=== PATIENT | female | born 1985 | race Caucasian/White ===

== ENCOUNTER 2017-11-17 20:37 | Emergency (ER) | payer SELFPAY ==
--- NOTE | 2017-11-17 21:35 | EKG REPORT ---
SEVERITY:- BORDERLINE ECG - SINUS RHYTHM BORDERLINE T ABNORMALITIES, ANTERIOR LEADS : Confirmed by: Lisandro Yeager MD 17-Nov-2017 21:34:48
[2017-11-17] MEDS ORDERED: NORMAL SALINE 1000 ML 1,000 ML IV ONE (22:16)
[2017-11-17] MEDS ORDERED: LIDOCAINE 2% VISCOUS SOLN 20 ML UDCUP PO ONE (22:16)
[2017-11-17] MEDS ORDERED: MAG HYDROX/AL HYDROX/SIMETH SUSP 30 ML UDCUP PO ONE (22:16)
[2017-11-17] MEDS ORDERED: ONDANSETRON HCL INJ/PF 4 MG/2 ML SDV IV ONE (22:16)
--- NOTE | 2017-11-17 22:18 | ER Document Report ---
ED General - General Chief Complaint: chest pain, fever, nausea Stated Complaint: CHEST PAIN Time Seen by Provider: 11/17/17 22:06 Mode of Arrival: Ambulatory Information source: Patient Notes: Patient presents complaining of midsternal chest pain for the past week that worsened over the past 2 days. Patient states pain goes into the upper abdomen. Patient does report nausea but denies any vomiting or diarrhea. Patient denies any cough. Patient does complain of fever for the past 3 days in which it was 102 today. Patient complains of bilateral upper rib tenderness that wraps around her back. TRAVEL OUTSIDE OF THE [place] IN LAST 30 DAYS: No - HPI Onset: Last week Onset/Duration: Persistent Quality of pain: Achy Pain Level: 3 Associated symptoms: Chest pain, Fever, Nausea, Shortness of breath. denies: Nonproductive cough, Productive cough, Diarrhea, Vomiting, Sweating Exacerbated by: Denies Relieved by: Denies Similar symptoms previously: No Recently seen / treated by doctor: No - Related Data Allergies/Adverse Reactions: No Known Allergies Allergy (Unverified 11/17/17 20:41) Past Medical History - General Information source: Patient - Social History Smoking Status: Never Smoker Frequency of alcohol use: None Drug Abuse: None Occupation: None Lives with: Spouse/Significant other Family History: Reviewed & Not Pertinent - Medical History Medical History: Negative Past Surgical History: Reports: Hx Adenoidectomy, Hx Section, Hx Tonsillectomy Review of Systems - Review of Systems Constitutional: Fever. denies: Recent illness EENT: No symptoms reported Cardiovascular: Chest pain. denies: Dizziness Respiratory: Short of breath. denies: Cough Gastrointestinal: Abdominal pain, Nausea. denies: Diarrhea, Vomiting Genitourinary: No symptoms reported Female Genitourinary: No symptoms reported. denies: , Vaginal discharge Musculoskeletal: Back pain - Pain radiates from chest through to her back Skin: No symptoms reported Hematologic/Lymphatic: No symptoms reported Neurological/Psychological: No symptoms reported. denies: Headaches Physical Exam - Vital signs Vitals: Temp Pulse Resp BP Pulse Ox 99.4 F 91 16 119/89 H 97 11/17/17 20:50 11/17/17 20:50 11/17/17 20:50 11/17/17 20:50 11/17/17 20:50 - General General appearance: Appears well, Alert In distress: None - HEENT Head: Normocephalic, Atraumatic Eyes: Normal Ears: Normal External canal: Normal Tympanic membrane: Normal. No: Injected, Perforation, Purulent effusion, Retracted, Serous effusion Nasal: Normal Mouth/Lips: Caries Teeth diagram: 1 - dental caries, tenderness Pharynx: Normal Neck: Normal, Supple. No: Lymphadenopathy, Meningismus - Respiratory Respiratory status: No respiratory distress Chest status: Tender Breath sounds: Normal Chest palpation: Tender - Cardiovascular Rhythm: Regular. No: Tachycardia Heart sounds: S1 appreciated, S2 appreciated Murmur: No - Abdominal Inspection: Normal Distension: No distension Bowel sounds: Normal Tenderness: Tender - epigastric, suprapubic Organomegaly: No organomegaly - Back Back: Normal, Nontender. No: CVA tenderness - Extremities General upper extremity: Normal inspection, Normal strength General lower extremity: Normal inspection, Normal strength - Neurological Neuro grossly intact: Yes Cognition: Normal [place] Coma Scale Eye Opening: Spontaneous Sam[place] Coma Scale Verbal: Oriented [place] Coma Scale Motor: Obeys Commands [place] Coma Scale Total: 15 - Psychological Associated symptoms: Normal affect, Normal mood - Skin Skin Temperature: Warm Skin Moisture: Dry Skin Color: Normal Course - Re-evaluation Re-evalutation: 11/18/17 01:[address] Mendez regarding patient presentation, advises adding on an HIV test and having patient return in 2 days for repeat liver function testing. Recommends outpatient follow-up with the primary doctor for concerns about hepatitis. 11/18/17 Patient does report that pain is improved after pain medication was given here. Patient without any additional nausea at this time. Discussed with patient at length importance of follow-up in 2 days to have her liver function tests reevaluated. Patient advised to return to the emergency department for this testing so that she can be advised based on the results. Patient encouraged to get established with a primary doctor as well as to follow-up with a washerette machine operator. Patient advised of HIV testing and also told that she would need additional testing to definitively rule out HIV. Patient advised of pending hepatitis panel. Patient encouraged to avoid any alcohol use or medications containing acetaminophen. Patient very anxious regarding her diagnosis. Patient is hemodynamically stable with stable vital signs at this time. No concern for sepsis, cholecystitis or cholangitis. Patient given good return precautions. Patient verbalized understanding and is agreeable with this plan of care. - Vital Signs Vital signs: Temp Pulse Resp BP Pulse Ox 98.5 F 82 18 111/81 100 11/18/17 03:09 11/18/17 03:09 11/18/17 03:09 11/18/17 03:09 11/18/17 03:09 - Laboratory Result Diagrams: 11/17/17 23:13 11/17/17 23:13 Laboratory results interpreted by me: 11/17/17 11/17/17 11/17/17 23:13 23:13 23:13 WBC 2.9 L BUN 5 L Total Bilirubin 2.1 H Direct Bilirubin 1.5 H AST 142 H ALT 151 H Alkaline Phosphatase 243 H Urine Urobilinogen 4.0 H Labs- Entire Visit 11/17/17 11/17/17 11/17/17 23:13 23:13 23:13 WBC 2.9 L RBC 4.71 Hgb 14.1 Hct 42.0 MCV 89 MCH 30.0 MCHC 33.7 RDW 12.0 Plt Count 175 Seg Neutrophils % 59.0 Lymphocytes % 27.4 Monocytes % 10.4 Eosinophils % 2.8 Basophils % 0.4 Absolute Neutrophils 1.7 Absolute Lymphocytes 0.8 Absolute Monocytes 0.3 Absolute Eosinophils 0.1 Absolute Basophils 0.0 Sodium 141.4 Potassium 3.8 Chloride 101 Carbon Dioxide 29 Anion Gap 11 BUN 5 L Creatinine 0.70 Est GFR ( Amer) > 60 Est GFR (Non-Af Amer) > 60 Glucose 94 Calcium 9.8 Total Bilirubin 2.1 H Direct Bilirubin 1.5 H Neonat Total Bilirubin Not Reportable Neonat Direct Bilirubin Not Reportable Neonat Indirect Bili Not Reportable AST 142 H ALT 151 H Alkaline Phosphatase 243 H Troponin I Total Protein 7.2 Albumin 4.4 Lipase 60.3 Serum HCG, Qual NEGATIVE Urine Color Urine Appearance Urine pH Ur Specific [place] Urine Protein Urine Glucose (UA) Urine Ketones Urine Blood Urine Nitrite Urine Bilirubin Urine Urobilinogen Ur Leukocyte Esterase Urine WBC (Auto) Urine RBC (Auto) Urine Bacteria (Auto) Squamous Epi Cells Auto Urine Ascorbic Acid HIV 1&2 Antibody 11/17/17 11/17/1711/17/18 23:13 23:13 23:13 WBC RBC Hgb Hct MCV MCH MCHC RDW Plt Count Seg Neutrophils % Lymphocytes % Monocytes % Eosinophils % Basophils % Absolute Neutrophils Absolute Lymphocytes Absolute Monocytes Absolute Eosinophils Absolute Basophils Sodium Potassium Chloride Carbon Dioxide Anion Gap BUN Creatinine Est GFR ( Amer) Est GFR (Non-Af Amer) Glucose Calcium Total Bilirubin Direct Bilirubin Neonat Total Bilirubin Neonat Direct Bilirubin Neonat Indirect Bili AST ALT Alkaline Phosphatase Troponin I < 0.012 Total Protein Albumin Lipase Serum HCG, Qual Urine Color RAN Urine Appearance CLEAR Urine pH 9.0 Ur Specific [place] 1.011 Urine Protein NEGATIVE Urine Glucose (UA) NEGATIVE Urine Ketones NEGATIVE Urine Blood NEGATIVE Urine Nitrite NEGATIVE Urine Bilirubin NEGATIVE Urine Urobilinogen 4.0 H Ur Leukocyte Esterase NEGATIVE Urine WBC (Auto) 1 Urine RBC (Auto) 1 Urine Bacteria (Auto) TRACE Squamous Epi Cells Auto 5 Urine Ascorbic Acid NEGATIVE HIV 1&2 Antibody NEGATIVE - Diagnostic Test Radiology reviewed: Reports reviewed Discharge - Discharge Clinical Impression: Hepatitis, Nausea Neutropenia Qualifiers: Neutropenia type: unspecified Qualified Code(s): D70.9 - Neutropenia, unspecified Abdominal pain Qualifiers: Abdominal location: epigastric Qualified Code(s): R10.13 - Epigastric pain Chest pain Qualifiers: Chest pain type: unspecified Qualified Code(s): R07.9 - Chest pain, unspecified Condition: Stable Disposition: HOME, SELF-CARE Instructions: Chest Pain of Unclear Cause ([facility]), Hepatitis ([facility]), Oral Narcotic Medication ([facility]) Additional Instructions: Return immediately for any new or worsening symptoms: Persistent fever, yellowing of the skin or eyes, darkening of the urine or any other new or concerning symptoms Followup with your primary care provider, call tomorrow to make a followup appointment Hepatitis panel is pending Follow-up with a washerette machine operator for further evaluation, call Sunday for an appointment Return in 2 days to have repeat LFT blood testing performed You can call back at [phone] to get results of your hepatitis panel Prescriptions: Oxycodone HCl [Oxy-Ir 5 mg Tablet] 5 mg PO Q6HP PRN #12 tab PRN Reason: Referrals: [facility] [Provider Group] - Follow up as needed [facility] [Provider Group] - Follow up as needed NAGI CORREA MD [ACTIVE STAFF] - Follow up as needed PONCE MCKENZIE MD [ACTIVE STAFF] - Follow up as needed
[2017-11-17 23:42] LABS: ABSOLUTE EOSINOPHILS # (AUTO) 0.1 10^3/uL (0.0-0.6); ABSOLUTE LYMPHOCYTES (AUTO) 0.8 10^3/uL (0.5-4.7); ABSOLUTE MONOCYTES (AUTO) 0.3 10^3/uL (0.1-1.4); ABSOLUTE NEUT (AUTO) 1.7 10^3/uL (1.7-8.2); BASOPHILS % (AUTO) 0.4 % (0-2); EOSINOPHILS % (AUTO) 2.8 % (0-6); HEMOGLOBIN 14.1 g/dL (12.0-15.5); LYMPHOCYTES % (AUTO) 27.4 % (13-45); MEAN CORPUSCULAR HGB CONC 33.7 g/dL (32.0-36.0); MEAN CORPUSCULAR VOLUME 89 fl (80-97); MONOCYTES % (AUTO) 10.4 % (3-13); PLATELET COUNT 175 10^3/uL (150-450); RED BLOOD COUNT 4.71 10^6/uL (3.72-5.28); TOTAL CELLS COUNTED % (AUTO) 100 %; WHITE BLOOD COUNT 2.9 10^3/uL (4.0-10.5)
[2017-11-17 23:44] LABS: APPEARANCE,URINE CLEAR; BILIRUBIN,URINE NEGATIVE (NEGATIVE); COLOR,URINE AMBER; GLUCOSE, URINE NEGATIVE (NEGATIVE); KETONES,URINE NEGATIVE (NEGATIVE); LEUKOCYTE ESTERASE,URINE NEGATIVE (NEGATIVE); NITRITE,URINE NEGATIVE (NEGATIVE); PROTEIN,URINE NEGATIVE (NEGATIVE); URINE SPECIFIC GRAVITY 1.011
--- NOTE | 2017-11-17 23:45 | RADIOLOGY REPORT (SQ) ---
EXAM DESCRIPTION: CHEST 2 VIEWS CLINICAL HISTORY: 32 years Female, epig pain, pain around lower ribs COMPARISON: None. TECHNIQUE: PA and lateral. FINDINGS: Adequate lung volume, clear parenchyma, normal cardiac silhouette, and intact bony thorax. IMPRESSION: No acute cardiopulmonary findings.
[2017-11-18 00:02] LABS: ALANINE AMINOTRANSFERASE 151 U/L (9-52); ALBUMIN 4.4 g/dL (3.5-5.0); ALKALINE PHOSPHATASE 243 U/L (38-126); ANION GAP 11 (5-19); ASPARTATE AMINO TRANSFERASE 142 U/L (14-36); BILIRUBIN,DIRECT 1.5 mg/dL (0.0-0.4); BILIRUBIN,TOTAL 2.1 mg/dL (0.2-1.3); BLOOD UREA NITROGEN 5 mg/dL (7-20); CALCIUM 9.8 mg/dL (8.4-10.2); CARBON DIOXIDE 29 mmol/L (22-30); CHLORIDE 101 mmol/L (98-107); GLUCOSE 94 mg/dL (75-110); LIPASE 60.3 U/L (23-300); POTASSIUM 3.8 mmol/L (3.6-5.0); SODIUM 141.4 mmol/L (137-145); TOTAL PROTEIN 7.2 g/dL (6.3-8.2)
--- NOTE | 2017-11-18 00:22 | RADIOLOGY REPORT (SQ) ---
EXAM DESCRIPTION: U/S ABDOMEN LIMITED W/O DOP CLINICAL HISTORY: 32 years, Female, epig pain, pain around lower ribs COMPARISON: None. LIMITATIONS: None. FINDINGS: Gallbladder appears normal. Negative sonographic Jiang's test. Common bile duct diameter 0.4 cm. No biliary ductal dilation. Pancreas, aorta, liver, and 10 cm right kidney appear otherwise unremarkable. No ascites. IMPRESSION: Normal RUQ sonogram.
[2017-11-18] MEDS ORDERED: OXYCODONE HCL IR 5 MG TABLET PO ONE (01:00)
[2017-11-18 03:11] VITALS: BP 111/81
[2017-11-19 12:37] LABS: HEPATITIS A AB IGM Negative (Negative); HEPATITIS B CORE AB IGM Negative (Negative); HEPATITS B SURFACE ANTIGEN Negative (Negative)
[2017-11-19 15:48] LABS: HEPATITIS C VIRUS ANTIBODY <0.1 s/co ratio (0.0-0.9)
== END 2017-11-18 03:49 | disposition home or self-care (01) ==
LOC: ER 20:37
DX: K75.9 Inflammatory liver disease, unspecified (principal); R11.0 Nausea; D70.9 Neutropenia, unspecified; R10.13 Epigastric pain; R07.9 Chest pain, unspecified; R50.9 Fever, unspecified; R06.02 Shortness of breath; K02.9 Dental caries, unspecified
CPT/HCPCS: 93005; 99284; 96361; 96374; 36415; 87040; 83690; 84703; 85025; 80053; 81001; 84484; 86701; 80074; 71046; 76705; 93010; J2405; J7030

== ENCOUNTER 2017-11-20 12:49 | Emergency (ER) | payer MEDICAID ==
--- NOTE | 2017-11-20 13:46 | ER Document Report ---
ED GI/ - General Chief Complaint: Abdominal Pain Stated Complaint: ABDOMINAL PAIN Time Seen by Provider: 11/20/17 13:30 Notes: The patient is a 32-year-old female, past medical history autoimmune joint disease, presents with 1 week of right upper quadrant pain and dark urine. She was seen in the ER 4 days ago and had elevated LFTs in the low WBC. Her ultrasound of her right upper quadrant was negative and her hepatitis and HIV tests were also negative. Patient has not taken a large amount of Tylenol, does not drink alcohol heavily has no recent travel. She is here for follow-up visit. TRAVEL OUTSIDE OF THE [place] IN LAST 30 DAYS: No - Related Data Allergies/Adverse Reactions: No Known Allergies Allergy (Unverified 11/17/17 20:41) Past Medical History - General Information source: Patient - Social History Smoking Status: Current Every Day Smoker Chew tobacco use (# tins/day): No Frequency of alcohol use: None Drug Abuse: None Family History: Reviewed & Not Pertinent Patient has suicidal ideation: No Patient has homicidal ideation: No Renal/ Medical History: Denies: Hx Peritoneal Dialysis Past Surgical History: Reports: Hx Adenoidectomy, Hx Section, Hx Tonsillectomy Review of Systems - Review of Systems Notes: REVIEW OF SYSTEMS: CONSTITUTIONAL: -fevers, -chills EENT: -eye pain, -difficulty swallowing, -nasal congestion CARDIOVASCULAR: -chest pain, -syncope. RESPIRATORY: -cough, -SOB GASTROINTESTINAL: +RUQ abdominal pain, -nausea, -vomiting, -diarrhea GENITOURINARY: -dysuria, -hematuria MUSCULOSKELETAL: -back pain, -neck pain SKIN: -rash or skin lesions. HEMATOLOGIC: -easy bruising or bleeding. LYMPHATIC: -swollen, enlarged glands. NEUROLOGICAL: -altered mental status or loss of consciousness, -headache, - neurologic symptoms PSYCHIATRIC: -anxiety, -depression. ALL OTHER SYSTEMS REVIEWED AND NEGATIVE. Physical Exam - Vital signs Vitals: Temp Pulse Resp BP Pulse Ox 98.1 F 104 H 16 127/95 H 99 11/20/17 13:00 11/20/17 13:00 11/20/17 13:00 11/20/17 13:11/20/17 13:00 - Notes Notes: PHYSICAL EXAMINATION: GENERAL: Well-appearing, well-nourished and in no acute distress. HEAD: Atraumatic, normocephalic. EYES: Pupils equal round and reactive to light, extraocular movements intact, sclera anicteric, conjunctiva are normal. ENT: nares patent, oropharynx clear without exudates. Moist mucous membranes. NECK: Normal range of motion, supple without lymphadenopathy LUNGS: Breath sounds clear to auscultation bilaterally and equal. No wheezes rales or rhonchi. HEART: Regular rate and rhythm without murmurs ABDOMEN: Soft, mild RUQ tenderness, normoactive bowel sounds. No guarding, no rebound. No masses appreciated. EXTREMITIES: Normal range of motion, no pitting or edema. No cyanosis. NEUROLOGICAL: Cranial nerves grossly intact. Normal speech, normal gait. Normal sensory and motor exams. PSYCH: Normal mood, normal affect. SKIN: Warm, Dry, normal turgor, no rashes or lesions noted. Not jaundiced. Course - Re-evaluation Re-evalutation: Patient appears well. Her white blood cell count increased from 2.9 to 4.2 and LFTs remain stable. RUQ US does not show any acute findings. Suspect a viral or autoimmune etiology to her symptoms and instructed her to follow-up with the chlorine plant operator for further evaluation and treatment. - Vital Signs Vital signs: Temp Pulse Resp BP Pulse Ox 97.3 F 79 16 133/86 H 100 11/20/17 16:49 11/20/17 16:49 11/20/17 16:49 11/20/17 16:49 11/20/17 16:49 - Laboratory Result Diagrams: 11/20/17 14:05 11/20/17 14:05 Laboratory results interpreted by me: 11/20/17 14:05 Potassium 3.5 L BUN 5 L Total Bilirubin 4.0 H Direct Bilirubin 3.6 H AST 107 H ALT 184 H Alkaline Phosphatase 281 H Total Protein 8.3 H - Diagnostic Test Radiology reviewed: Image reviewed, Reports reviewed Radiology results interpreted by me: JAGDEEP US: Normal Discharge - Discharge Clinical Impression: Elevated LFTs Condition: Stable Disposition: HOME, SELF-CARE Additional Instructions: Follow-up with the chlorine plant operator for further evaluation and treatment. Forms: Elevated Blood Pressure, Return to Work Referrals: PONCE MCKENZIE MD [ACTIVE STAFF] - Follow up as needed
[2017-11-20 14:23] LABS: ABSOLUTE EOSINOPHILS # (AUTO) 0.2 10^3/uL (0.0-0.6); ABSOLUTE LYMPHOCYTES (AUTO) 1.4 10^3/uL (0.5-4.7); ABSOLUTE MONOCYTES (AUTO) 0.4 10^3/uL (0.1-1.4); ABSOLUTE NEUT (AUTO) 2.3 10^3/uL (1.7-8.2); BASOPHILS % (AUTO) 0.5 % (0-2); EOSINOPHILS % (AUTO) 4.2 % (0-6); HEMATOCRIT 45.4 % (36.0-47.0); HEMOGLOBIN 15.3 g/dL (12.0-15.5); LYMPHOCYTES % (AUTO) 32.8 % (13-45); MEAN CORPUSCULAR HEMOGLOBIN 29.7 pg (27.0-33.4); MEAN CORPUSCULAR HGB CONC 33.7 g/dL (32.0-36.0); MEAN CORPUSCULAR VOLUME 88 fl (80-97); MONOCYTES % (AUTO) 9.1 % (3-13); PLATELET COUNT 211 10^3/uL (150-450); RED BLOOD COUNT 5.14 10^6/uL (3.72-5.28); RED CELL DISTRIBUTION WIDTH 12.1 % (11.5-14.0); SEGMENTED NEUTROPHILS % (AUTO) 53.4 % (42-78); TOTAL CELLS COUNTED % (AUTO) 100 %; WHITE BLOOD COUNT 4.2 10^3/uL (4.0-10.5)
[2017-11-20 14:40] LABS: ALANINE AMINOTRANSFERASE 184 U/L (9-52); ALBUMIN 4.6 g/dL (3.5-5.0); ALKALINE PHOSPHATASE 281 U/L (38-126); ANION GAP 14 (5-19); ASPARTATE AMINO TRANSFERASE 107 U/L (14-36); BILIRUBIN,DIRECT 3.6 mg/dL (0.0-0.4); BLOOD UREA NITROGEN 5 mg/dL (7-20); CARBON DIOXIDE 27 mmol/L (22-30); CHLORIDE 100 mmol/L (98-107); GLUCOSE 107 mg/dL (75-110); SODIUM 141.2 mmol/L (137-145); TOTAL PROTEIN 8.3 g/dL (6.3-8.2)
[2017-11-20 14:41] LABS: POTASSIUM 3.5 mmol/L (3.6-5.0)
--- NOTE | 2017-11-20 16:28 | RADIOLOGY REPORT (SQ) ---
EXAM DESCRIPTION: U/S ABDOMEN LIMITED W/O DOP COMPLETED DATE/TIME: 11/20/2017 4:14 pm REASON FOR STUDY: RUQ pain, worsening LFTs COMPARISON: 11/17/2017. TECHNIQUE: Dynamic and static grayscale images acquired of the abdomen and recorded on PACS. Kyle mehta selected color Doppler and spectral images recorded. LIMITATIONS: None. FINDINGS: PANCREAS: No masses. Visualized pancreatic duct normal caliber. LIVER: No masses. Echotexture normal. LIVER VASCULATURE: Normal directional flow of the main portal vein and hepatic veins. GALLBLADDER: Contracted. No stones. Normal wall thickness. No pericholecystic fluid. ULTRASOUND-DETECTED PEREIRA'S SIGN: Negative. INTRAHEPATIC DUCTS AND COMMON DUCT: CBD and intrahepatic ducts normal caliber. No filling defects. INFERIOR VENA CAVA: Normal flow. AORTA: No aneurysm. RIGHT KIDNEY: Normal size. Normal echogenicity. No solid or suspicious masses. No hydronephrosis. No calcifications. PERITONEAL AND RIGHT PLEURAL SPACE: No ascites or effusions. OTHER: No other significant findings. IMPRESSION: NORMAL RIGHT UPPER QUADRANT ULTRASOUND. TECHNICAL DOCUMENTATION: JOB ID: [id number] [employer]- All Rights Reserved Reading location - IP/workstation name: [email or web address]
[2017-11-20 16:54] VITALS: BP 133/86
== END 2017-11-20 16:54 | disposition home or self-care (01) ==
LOC: ER 12:49
DX: R79.89 Other specified abnormal findings of blood chemistry (principal); R10.11 Right upper quadrant pain; F17.200 Nicotine dependence, unspecified, uncomplicated
CPT/HCPCS: 36415; 76705; 80053; 85025; 99284

== ENCOUNTER 2017-11-23 11:54 | Emergency (ER) | payer MEDICAID ==
[2017-11-23] MEDS ORDERED: NORMAL SALINE 1000 ML 1,000 ML IV ONE (12:30)
--- NOTE | 2017-11-23 12:30 | ER Document Report ---
ED GI/ - General TRAVEL OUTSIDE OF THE [place] IN LAST 30 DAYS: No - General Chief Complaint: Abdominal Pain Stated Complaint: ABDOMINAL PAIN Time Seen by Provider: 11/23/17 12:09 Notes: Patient presents with concern of right upper quadrant pain and diffuse itching. Patient when she been seen in the emergency department for 4\14 and 17 of this month for similar symptoms that are now worsening. She complains of right upper quadrant pain that is worsening and also begin to have garduno colored stools this morning. She has had a formal ultrasound that shows no acute abnormalities. Her labs showed transaminitis with no etiology. She states that she has been worked up for hepatitis A, B, and C and have all come back negative. She has had a negative ultrasound for previous visits. She is but her delivery was in June of last year. She does not take any medications on a daily basis. She has not been out of the country. She denies any vaginal discharge or pain. She denies any drug use. She denies any recent fevers cough or congestion. She has a appointment with a certified registered locksmith but has not been able to see them yet. She called their office and she was told to come to the emergency department for reevaluation. Web Services Professional name is Dr. Briggs at [facility]. I have greeted and performed a rapid initial assessment of this patient. A comprehensive ED assessment and evaluation of the patient, analysis of test results and completion of the medical decision making process will be conducted by additional ED providers. PHYSICAL EXAMINATION: GENERAL: Well-appearing, well-nourished and in no acute distress. HEAD: Atraumatic, normocephalic. EYES: Pupils equal round extraocular movements intact, conjunctiva are normal. No icterus ENT: Nares patent NECK: Normal range of motion LUNGS: No respiratory distress ABD: Tenderness to palpation of right upper quadrant Musculoskeletal: Normal range of motion NEUROLOGICAL: Normal speech, normal gait. PSYCH: Normal mood, normal affect. SKIN: Warm, Dry, normal turgor, no rashes or lesions noted. (CAROLINA RODRIGUEZ) - Related Data Allergies/Adverse Reactions: No Known Allergies Allergy (Verified 11/23/17 11:55) Past Medical History - Social History Smoking Status: Current Every Day Smoker Chew tobacco use (# tins/day): No Frequency of alcohol use: None Drug Abuse: None Family History: Reviewed & Not Pertinent Patient has suicidal ideation: No Patient has homicidal ideation: No Renal/ Medical History: Denies: Hx Peritoneal Dialysis Past Surgical History: Reports: Hx Adenoidectomy, Hx Section, Hx Tonsillectomy - Vital signs Vitals: Temp Pulse Resp BP Pulse Ox 98.1 F 117 H 20 151/105 H 100 11/23/17 11:59 11/23/17 11:59 11/23/17 11:59 11/23/17 11:59 11/23/17 11:59 - Vital Signs Vital signs: Temp Pulse Resp BP Pulse Ox 98.1 F 117 H 20 151/105 H 100 11/23/17 11:59 11/23/17 11:59 11/23/17 11:59 11/23/17 11:59 11/23/17 11:59
[2017-11-23] MEDS ORDERED: ONDANSETRON HCL INJ/PF 4 MG/2 ML SDV IV ONE (12:31)
[2017-11-23] MEDS ORDERED: AMLODIPINE BESYLATE 5 MG TABLET PO ONE (12:50)
[2017-11-23 13:18] LABS: ABSOLUTE EOSINOPHILS # (AUTO) 0.2 10^3/uL (0.0-0.6); ABSOLUTE LYMPHOCYTES (AUTO) 1.6 10^3/uL (0.5-4.7); ABSOLUTE MONOCYTES (AUTO) 0.4 10^3/uL (0.1-1.4); ABSOLUTE NEUT (AUTO) 2.5 10^3/uL (1.7-8.2); BASOPHILS % (AUTO) 1.1 % (0-2); EOSINOPHILS % (AUTO) 3.2 % (0-6); HEMATOCRIT 44.4 % (36.0-47.0); HEMOGLOBIN 15.1 g/dL (12.0-15.5); LYMPHOCYTES % (AUTO) 33.9 % (13-45); MEAN CORPUSCULAR HEMOGLOBIN 29.8 pg (27.0-33.4); MEAN CORPUSCULAR HGB CONC 33.9 g/dL (32.0-36.0); MEAN CORPUSCULAR VOLUME 88 fl (80-97); MONOCYTES % (AUTO) 8.5 % (3-13); PLATELET COUNT 261 10^3/uL (150-450); RED BLOOD COUNT 5.06 10^6/uL (3.72-5.28); SEGMENTED NEUTROPHILS % (AUTO) 53.3 % (42-78); TOTAL CELLS COUNTED % (AUTO) 100 %; WHITE BLOOD COUNT 4.7 10^3/uL (4.0-10.5)
[2017-11-23 13:20] LABS: APPEARANCE,URINE CLEAR; BILIRUBIN,URINE NEGATIVE (NEGATIVE); COLOR,URINE YELLOW; GLUCOSE, URINE NEGATIVE (NEGATIVE); KETONES,URINE NEGATIVE (NEGATIVE); LEUKOCYTE ESTERASE,URINE NEGATIVE (NEGATIVE); NITRITE,URINE NEGATIVE (NEGATIVE); PROTEIN,URINE NEGATIVE (NEGATIVE); URINE SPECIFIC GRAVITY 1.002; UROBILINOGEN,URINE NEGATIVE mg/dL (<2.0)
[2017-11-23] MEDS ORDERED: HYDROXYZINE PAMOATE 50 MG CAPSULE PO ONE (13:20)
[2017-11-23 13:37] LABS: URINE AMPHETAMINES SCREEN NEGATIVE; URINE BARBITURATES SCREEN NEGATIVE; URINE BENZODIAZEPINES SCREEN NEGATIVE; URINE MARIJUANA (THC) SCREEN NEGATIVE; URINE METHADONE SCREEN NEGATIVE; URINE PHENCYCLIDINE SCREEN NEGATIVE
[2017-11-23 13:40] LABS: ALANINE AMINOTRANSFERASE 188 U/L (9-52); ALBUMIN 4.5 g/dL (3.5-5.0); ALKALINE PHOSPHATASE 259 U/L (38-126); ANION GAP 14 (5-19); ASPARTATE AMINO TRANSFERASE 101 U/L (14-36); BILIRUBIN,TOTAL 3.4 mg/dL (0.2-1.3); BLOOD UREA NITROGEN 3 mg/dL (7-20); CALCIUM 10.1 mg/dL (8.4-10.2); CARBON DIOXIDE 27 mmol/L (22-30); CHLORIDE 104 mmol/L (98-107); GLUCOSE 111 mg/dL (75-110); POTASSIUM 3.7 mmol/L (3.6-5.0); SODIUM 144.6 mmol/L (137-145)
[2017-11-23 13:47] LABS: URINE COCAINE SCREEN NEGATIVE
[2017-11-23 13:50] LABS: LIPASE 59.8 U/L (23-300)
--- NOTE | 2017-11-23 14:00 | RADIOLOGY REPORT (SQ) ---
EXAM DESCRIPTION: CT ABD/PELVIS WITH IV ONLY COMPLETED DATE/TIME: 11/23/2017 1:45 pm REASON FOR STUDY: RUQ pain COMPARISON: None. TECHNIQUE: CT scan of the abdomen and pelvis performed using helical scanning technique with dynamic intravenous contrast injection. No oral contrast. Images reviewed with lung, soft tissue, and bone windows. Reconstructed coronal and sagittal MPR images reviewed. Delayed images for evaluation of the urinary system also acquired. All images stored on PACS. All CT scanners at this facility use dose modulation, iterative reconstruction, and/or weight based d osing when appropriate to reduce radiation dose to as low as reasonably achievable (ALARA). [facility]: Dose Right [facility]: CareDose [facility]: Dose Right [facility]: Teradose 4D [facility]: [employer] CONTRAST TYPE AND DOSE: contrast/concentration: Isovue 370.00 mg/ml; Total Contrast Delivered: 84.0 ml; Total Saline Delivered: 69.0 ml RENAL FUNCTION: BUN 5 creatinine 0.73 RADIATION DOSE: CT Rad equipment meets quality standard of care and radiation dose reduction techniq ues were employed. CTDIvol: NaN - NaN mGy. DLP: 0 mGy-cm.. LIMITATIONS: None. FINDINGS: LOWER CHEST: No significant findings. No nodules or infiltrates. LIVER: Normal size. No masses. No dilated ducts. SPLEEN: Normal size. No focal lesions. PANCREAS: No masses. No significant calcifications. No adjacent inflammation or peripancreatic fluid collections. Pancreatic duct not dilated. GALLBLADDER: No identified stones by CT criteria. No inflammatory changes to suggest cholecystitis. ADRENAL GLANDS: No significant masses or asymmetry. RIGHT KIDNEY AND URETER: No solid masses. No significant calcifications. No hydronephrosis or hyd roureter. LEFT KIDNEY AND URETER: No solid masses. No significant calcifications. No hydronephrosis or hydr oureter. AORTA AND VESSELS: No aneurysm. No dissection. Renal arteries, SMA, celiac without stenosis. RETROPERITONEUM: No retroperitoneal adenopathy, hemorrhage or masses. BOWEL AND PERITONEAL CAVITY: No masses or inflammatory changes. No free fluid or peritoneal masses. APPENDIX: Normal. PELVIS: There is a 33 mm left ovarian cyst. There is no free fluid in the pelvis. ABDOMINAL WALL: No masses. No hernias. BONES: No significant or acute findings. OTHER: No other significant finding. IMPRESSION: 33 mm left ovarian cyst. TECHNICAL DOCUMENTATION: JOB ID: [id number] Quality ID # [id number]: Final reports with documentation of one or more dose reduction techniques (e.g., Au tomated exposure control, adjustment of the mA and/or kV according to patient size, use of iterative reconstruction technique) 2010 [employer]- All Rights Reserved Reading location - IP/workstation name: [email or web address]
--- NOTE | 2017-11-23 14:33 | ER Document Report ---
ED GI/ - General Chief Complaint: Abdominal Pain Stated Complaint: ABDOMINAL PAIN Time Seen by Provider: 11/23/17 12:09 Mode of Arrival: Ambulatory Information source: Patient Notes: Patient presents complaining of right upper quadrant abdominal pain the past week. Patient has been seen here on 11/17/2017 and 11/20/2017. Patient had elevated liver function studies at this time with a negative ultrasound. Patient presents today because she complains of continued right upper quadrant abdominal pain, pruritus and reports having a huan colored stool today. Patient denies any fever or cough. Patient does have an appointment with a front end mechanic next week. TRAVEL OUTSIDE OF THE [place] IN LAST 30 DAYS: No - HPI Patient complains to provider of: Abdominal pain. No: Vomiting Onset: Last week Timing/Duration: Persistent Quality of pain: Achy, Sharp - Occasionally sharp Pain Level: 2 Location: RUQ Associated symptoms: Nausea. denies: Chest pain, Fever, Urinary hesitancy, Urinary frequency, Urinary retention, Vaginal discharge, Vomiting Exacerbated by: Movement Relieved by: Denies Similar symptoms previously: No Recently seen / treated by doctor: Yes - Related Data Allergies/Adverse Reactions: No Known Allergies Allergy (Verified 11/23/17 11:55) Past Medical History - General Information source: Patient - Social History Smoking Status: Current Every Day Smoker Chew tobacco use (# tins/day): No Smoking Education Provided: Yes Frequency of alcohol use: None Drug Abuse: None Occupation: None Lives with: Family Family History: Reviewed & Not Pertinent Patient has suicidal ideation: No Patient has homicidal ideation: No - Medical History Medical History: Other - Unspecified connective tissue disease, autoimmune Renal/ Medical History: Denies: Hx Peritoneal Dialysis Past Surgical History: Reports: Hx Adenoidectomy, Hx Section, Hx Tonsillectomy Review of Systems - Review of Systems Constitutional: No symptoms reported. denies: Fever, Recent illness EENT: No symptoms reported Cardiovascular: No symptoms reported. denies: Chest pain Respiratory: No symptoms reported. denies: Cough, Short of breath Gastrointestinal: Abdominal pain, Nausea, Other - Huan colored stool. denies: Vomiting Genitourinary: No symptoms reported Female Genitourinary: No symptoms reported Musculoskeletal: No symptoms reported Skin: Other - Generalized pruritus. denies: Rash Hematologic/Lymphatic: No symptoms reported Neurological/Psychological: No symptoms reported Physical Exam - Vital signs Vitals: Temp Pulse Resp BP Pulse Ox 98.1 F 117 H 20 151/105 H 100 11/23/17 11:59 11/23/17 11:59 11/23/17 11:59 11/23/17 11:59 11/23/17 11:59 - General General appearance: Appears well, Alert In distress: None - HEENT Head: Normocephalic, Atraumatic Eyes: Normal Conjunctiva: Normal Nasal: Normal Mouth/Lips: Normal Mucous membranes: Normal Pharynx: Normal Neck: Normal, Supple. No: Lymphadenopathy - Respiratory Respiratory status: No respiratory distress Chest status: Nontender Breath sounds: Normal. No: Rales, Rhonchi, Stridor, Wheezing Chest palpation: Normal - Cardiovascular Rhythm: Regular Heart sounds: S1 appreciated, S2 appreciated Murmur: No - Abdominal Inspection: Normal Distension: No distension Bowel sounds: Normal Tenderness: Tender - RUQ Organomegaly: No organomegaly - Back Back: Normal, Nontender. No: CVA tenderness - Extremities General upper extremity: Normal inspection, Nontender, Normal strength General lower extremity: Normal inspection, Nontender, Normal strength - Neurological Neuro grossly intact: Yes Cognition: Normal Shell Coma Scale Eye Opening: Spontaneous Samanta Coma Scale Verbal: Oriented Samanta Coma Scale Motor: Obeys Commands Shell Coma Scale Total: 15 - Psychological Associated symptoms: Normal affect, Normal mood - Skin Skin Temperature: Warm Skin Moisture: Dry Skin Color: Normal Course - Re-evaluation Re-evalutation: 11/23/17 14:[address] Chaudhry regarding patient presentation, advises obtaining MRCP to further evaluate patient's symptoms. 11/23/17 17:[address] Anselmo Tellez at [facility], transition specialist front end mechanic. Reviewed patient' s presentation and diagnostic workup. Advises giving patient Atarax to help with pruritus and having her follow-up as an outpatient with GI as planned. No additional testing advised at this time. 11/23/17 Patient states that the Atarax markedly helped her pruritus. - Vital Signs Vital signs: Temp Pulse Resp BP Pulse Ox 98.9 F 89 18 121/78 98 11/23/17 17:38 11/23/17 17:38 11/23/17 17:38 11/23/17 17:38 11/23/17 17:38 - Laboratory Result Diagrams: 11/23/17 12:45 11/23/17 12:45 Laboratory results interpreted by me: 11/23/17 12:45 BUN 3 L Glucose 111 H Total Bilirubin 3.4 H Direct Bilirubin 3.0 H AST 101 H ALT 188 H Alkaline Phosphatase 259 H 11/23/17 17:17 Labs- Entire Visit 11/23/17 11/23/17 11/23/17 12:45 12:45 12:45 WBC 4.7 RBC 5.06 Hgb 15.1 Hct 44.4 MCV 88 MCH 29.8 MCHC 33.9 RDW 12.0 Plt Count 261 Seg Neutrophils % 53.3 Lymphocytes % 33.9 Monocytes % 8.5 Eosinophils % 3.2 Basophils % 1.1 Absolute Neutrophils 2.5 Absolute Lymphocytes 1.6 Absolute Monocytes 0.4 Absolute Eosinophils 0.2 Absolute Basophils 0.0 PT INR APTT Sodium 144.6 Potassium 3.7 Chloride 104 Carbon Dioxide 27 Anion Gap 14 BUN 3 L Creatinine 0.56 Est GFR ( Amer) > 60 Est GFR (Non-Af Amer) > 60 Glucose 111 H Calcium 10.1 Total Bilirubin 3.4 H Direct Bilirubin 3.0 H Neonat Total Bilirubin Not Reportable Neonat Direct Bilirubin Not Reportable Neonat Indirect Bili Not Reportable AST 101 H ALT 188 H Alkaline Phosphatase 259 H Ammonia 17.6 Total Protein 8.0 Albumin 4.5 Lipase Urine Color Urine Appearance Urine pH Ur Specific Sargent Urine Protein Urine Glucose (UA) Urine Ketones Urine Blood Urine Nitrite Urine Bilirubin Urine Urobilinogen Ur Leukocyte Esterase Urine RBC (Auto) Squamous Epi Cells Auto Urine Mucus (Auto) Urine Ascorbic Acid Urine Opiates Screen Urine Methadone Screen Ur Barbiturates Screen Ur Phencyclidine Scrn Ur Amphetamines Screen U Benzodiazepines Scrn Urine Cocaine Screen U Marijuana (THC) Screen 11/23/17 11/23/17 11/23/17 12:45 12:45 12:45 WBC RBC Hgb Hct MCV MCH MCHC RDW Plt Count Seg Neutrophils % Lymphocytes % Monocytes % Eosinophils % Basophils % Absolute Neutrophils Absolute Lymphocytes Absolute Monocytes Absolute Eosinophils Absolute Basophils PT INR APTT Sodium Potassium Chloride Carbon Dioxide Anion Gap BUN Creatinine Est GFR ( Amer) Est GFR (Non-Af Amer) Glucose Calcium Total Bilirubin Direct Bilirubin Neonat Total Bilirubin Neonat Direct Bilirubin Neonat Indirect Bili AST ALT Alkaline Phosphatase Ammonia Total Protein Albumin Lipase 59.8 Urine Color YELLOW Urine Appearance CLEAR Urine pH 6.0 Ur Specific Sargent 1.002 Urine Protein NEGATIVE Urine Glucose (UA) NEGATIVE Urine Ketones NEGATIVE Urine Blood NEGATIVE Urine Nitrite NEGATIVE Urine Bilirubin NEGATIVE Urine Urobilinogen NEGATIVE Ur Leukocyte Esterase NEGATIVE Urine RBC (Auto) 0 Squamous Epi Cells Auto 1 Urine Mucus (Auto) RARE Urine Ascorbic Acid NEGATIVE Urine Opiates Screen NEGATIVE Urine Methadone Screen NEGATIVE Ur Barbiturates Screen NEGATIVE Ur Phencyclidine Scrn NEGATIVE Ur Amphetamines Screen NEGATIVE U Benzodiazepines Scrn NEGATIVE Urine Cocaine Screen NEGATIVE U Marijuana (THC) Screen NEGATIVE 11/23/17 12:45 WBC RBC Hgb Hct MCV MCH MCHC RDW Plt Count Seg Neutrophils % Lymphocytes % Monocytes % Eosinophils % Basophils % Absolute Neutrophils Absolute Lymphocytes Absolute Monocytes Absolute Eosinophils Absolute Basophils PT 13.2 INR 0.95 APTT 29.3 Sodium Potassium Chloride Carbon Dioxide Anion Gap BUN Creatinine Est GFR ( Amer) Est GFR (Non-Af Amer) Glucose Calcium Total Bilirubin Direct Bilirubin Neonat Total Bilirubin Neonat Direct Bilirubin Neonat Indirect Bili AST ALT Alkaline Phosphatase Ammonia Total Protein Albumin Lipase Urine Color Urine Appearance Urine pH Ur Specific Sargent Urine Protein Urine Glucose (UA) Urine Ketones Urine Blood Urine Nitrite Urine Bilirubin Urine Urobilinogen Ur Leukocyte Esterase Urine RBC (Auto) Squamous Epi Cells Auto Urine Mucus (Auto) Urine Ascorbic Acid Urine Opiates Screen Urine Methadone Screen Ur Barbiturates Screen Ur Phencyclidine Scrn Ur Amphetamines Screen U Benzodiazepines Scrn Urine Cocaine Screen U Marijuana (THC) Screen Reviewed labs from patient's previous 2 ED visits - Diagnostic Test Radiology reviewed: Reports reviewed Discharge - Discharge Clinical Impression: Elevated LFTs, Pruritus Abdominal pain Qualifiers: Abdominal location: right upper quadrant Qualified Code(s): R10.11 - Right upper quadrant pain Condition: Stable Disposition: HOME, SELF-CARE Instructions: Abdominal Pain ([facility]), Liver Function Abnormality ([facility]) Additional Instructions: Return immediately for any new or worsening symptoms Followup with your primary care provider, call tomorrow to make a followup appointment Follow-up with GI doctor next week as planned Prescriptions: Hydroxyzine HCl [Atarax 25 mg Tablet] 1 - 2 tab PO QID #25 tablet Forms: Smoking Cessation Education Referrals: PONCE MCKENZIE MD [ACTIVE STAFF] - Follow up as needed
[2017-11-23 14:58] LABS: INTERNATIONAL RATION (INR) 0.95; PROTHROMBIN TIME 13.2 SEC (11.4-15.4)
[2017-11-23 14:59] LABS: PARTIAL THROMBOPLASTIN TIME 29.3 SEC (23.5-35.8)
--- NOTE | 2017-11-23 16:31 | RADIOLOGY REPORT (SQ) ---
EXAM DESCRIPTION: MRI ABDOMEN WITHOUT COMPLETED DATE/TIME: 11/23/2017 4:20 pm REASON FOR STUDY: MRCP, elev LFT/bili, RUQ pain COMPARISON: Recent CT and ultrasound studies. TECHNIQUE: Noncontrast MRCP. Source and MIP images reviewed. LIMITATIONS: None. FINDINGS: GALLBLADDER: Normal. INTRAHEPATIC DUCTS: Nondilated. EXTRAHEPATIC DUCTS: Common duct is normal caliber. No dilatation of the pancreatic duct. No ductal filling defects noted. PANCREAS: Generally homogeneous, no gross mass or significant signal alteration. No surrounding infl ammatory changes or fluid. Pancreatic duct is normal. LIVER, SPLEEN, KIDNEYS, ADRENALS: No significant abnormality. VESSELS: No evidence of aneurysm. Grossly appropriate flow voids in the major vascular structures. LUNG BASES: Grossly clear. OTHER: No other significant finding. IMPRESSION: NORMAL HEPATOBILIARY SYSTEM. NO STONES OR COMMON DUCT ABNORMALITIES. TECHNICAL DOCUMENTATION: JOB ID: [id number] [employer]- All Rights Reserved Reading location - IP/workstation name: [email or web address]
[2017-11-23 17:39] VITALS: BP 121/78
== END 2017-11-23 17:38 | disposition home or self-care (01) ==
LOC: ER 11:54
DX: R10.11 Right upper quadrant pain (principal); L29.9 Pruritus, unspecified; R79.89 Other specified abnormal findings of blood chemistry; R11.0 Nausea; F17.200 Nicotine dependence, unspecified, uncomplicated
CPT/HCPCS: 99284; 96361; 96374; 36415; 82140; 83690; 85025; 85610; 85730; 80053; 81001; 80307; 74181; 74177; J2405; J7030

== ENCOUNTER → 2017-11-29 | Outpatient (CLI) | payer SELFPAY ==
[2017-11-29 12:47] LABS: ALANINE AMINOTRANSFERASE 99 U/L (9-52); ALBUMIN 4.3 g/dL (3.5-5.0); ALKALINE PHOSPHATASE 209 U/L (38-126); ASPARTATE AMINO TRANSFERASE 60 U/L (14-36); BILIRUBIN,DIRECT 1.7 mg/dL (0.0-0.4); BILIRUBIN,TOTAL 2.7 mg/dL (0.2-1.3); TOTAL PROTEIN 7.4 g/dL (6.3-8.2)
[2017-12-01 11:34] LABS: ANTINUCLEAR ANTIBODIES Negative (Negative)
== END ==
LOC: OD 11:14
PROVIDERS: ATTEND Internal Medicine Gastroenterology
DX: R94.5 Abnormal results of liver function studies (principal)
CPT/HCPCS: 36415; 80076; 86038; 86256

== ENCOUNTER → 2017-12-25 | Outpatient (CLI) | payer MEDICAID ==
[2017-12-25 17:55] LABS: ALANINE AMINOTRANSFERASE 101 U/L (9-52); ALBUMIN 4.7 g/dL (3.5-5.0); ALKALINE PHOSPHATASE 154 U/L (38-126); ASPARTATE AMINO TRANSFERASE 61 U/L (14-36); BILIRUBIN,DIRECT 0.8 mg/dL (0.0-0.4); BILIRUBIN,TOTAL 1.3 mg/dL (0.2-1.3); TOTAL PROTEIN 7.9 g/dL (6.3-8.2)
== END ==
LOC: OD 16:17
PROVIDERS: ATTEND Internal Medicine Gastroenterology
DX: R94.5 Abnormal results of liver function studies (principal)
CPT/HCPCS: 36415; 80076

== ENCOUNTER 2017-12-28 10:39 | Emergency (ER) | payer MEDICAID ==
--- NOTE | 2017-12-28 10:58 | ER Document Report ---
ED General - General Chief Complaint: Leg Pain Stated Complaint: LEFT LEG PAIN Time Seen by Provider: 12/28/17 10:46 Mode of Arrival: Ambulatory Information source: Patient Notes: 32-year-old female presents with complaints of left leg pain with mild swelling. Patient notes her mother has a history of blood clots unsure of the cause but states it is not genetic, states that yesterday she noticed some swelling just lateral to her left knee and then on her lateral thigh patient denies any known injuries TRAVEL OUTSIDE OF THE [place] IN LAST 30 DAYS: No - HPI Onset: Yesterday Onset/Duration: Sudden Quality of pain: Achy Severity: Mild Pain Level: 1 Associated symptoms: Leg swelling Exacerbated by: Movement Relieved by: Denies Similar symptoms previously: No Recently seen / treated by doctor: No - Related Data Allergies/Adverse Reactions: No Known Allergies Allergy (Verified 11/23/17 11:55) Past Medical History - Social History Smoking Status: Current Every Day Smoker Cigarette use (# per day): Yes Chew tobacco use (# tins/day): No Smoking Education Provided: No Frequency of alcohol use: None Drug Abuse: None Family History: Reviewed & Not Pertinent Patient has suicidal ideation: No Patient has homicidal ideation: No Renal/ Medical History: Denies: Hx Peritoneal Dialysis Past Surgical History: Reports: Hx Adenoidectomy, Hx Section, Hx Tonsillectomy Review of Systems - Review of Systems Notes: REVIEW OF SYSTEMS: CONSTITUTIONAL : Denies fever, chills, or sweats. Denies recent illness. EENT: Denies eye, ear, throat, or mouth pain or symptoms. Denies nasal or sinus congestion or discharge. Denies throat, tongue, or mouth swelling or difficulty swallowing. CARDIOVASCULAR: Denies chest pain. Denies palpitations or racing or irregular heart beat. Denies ankle edema. RESPIRATORY: Denies cough, cold, or chest congestion. Denies shortness of breath, difficulty breathing, or wheezing. GASTROINTESTINAL: Denies abdominal pain or distention. Denies nausea, vomiting , or diarrhea. Denies blood in vomitus, stools, or per rectum. Denies black, tarry stools. Denies constipation. GENITOURINARY: Denies difficulty urinating, painful urination, burning, frequency, blood in urine, or discharge. FEMALE GENITOURINARY: Denies vaginal bleeding, heavy or abnormal periods, irregular periods. Denies vaginal discharge or odor. MUSCULOSKELETAL: Admits to left leg swelling pain SKIN: Denies rash, lesions or sores. HEMATOLOGIC : Denies easy bruising or bleeding. LYMPHATIC: Denies swollen, enlarged glands. NEUROLOGICAL: Denies confusion or altered mental status. Denies passing out or loss of consciousness. Denies dizziness or lightheadedness. Denies headache. Denies weakness or paralysis or loss of use of either side. Denies problems with gait or speech. Denies sensory loss, numbness, or tingling. Denies seizures. PSYCHIATRIC: Denies anxiety or stress. Denies depression, suicidal ideation, or homicidal ideation. ALL OTHER SYSTEMS REVIEWED AND NEGATIVE. PHYSICAL EXAMINATION: GENERAL: Well-appearing, well-nourished and in no acute distress. HEAD: Atraumatic, normocephalic. EYES: Pupils equal round and reactive to light, extraocular movements intact, conjunctiva are normal. ENT: Nares patent, oropharynx clear without exudates. Moist mucous membranes. NECK: Normal range of motion, supple without lymphadenopathy LUNGS: Breath sounds clear to auscultation bilaterally and equal. No wheezes rales or rhonchi. HEART: Regular rate and rhythm without murmurs ABDOMEN: Soft, nontender, nondistended abdomen. No guarding, no rebound. No masses appreciated. Female : deferred Musculoskeletal: Normal range of motion, no pitting or edema. No cyanosis. NEUROLOGICAL: Cranial nerves grossly intact. Normal speech, normal gait. Normal sensory, motor exams PSYCH: Normal mood, normal affect. SKIN: Tenderness just lateral to left knee mild edema no calf pain Dictation was performed using [employer] voice recognition software Physical Exam - Vital signs Vitals: Temp Pulse Resp BP Pulse Ox 98.5 F 105 H 16 129/95 H 100 12/28/17 10:43 12/28/17 10:43 12/28/17 10:43 12/28/17 10:43 12/28/17 10:43 Course - Re-evaluation Re-evalutation: 12/28/17 10:58 Location of the patient's swelling and pain are not consistent with a DVT however she does have multiple risk factors for ultrasound pending 12/28/17 12:33 Ultrasound Doppler left lower extremity notes no DVT, patient's pain appears to be muscular skeletal there is no superficial venous thrombosis noted After performing a Medical Screening Examination, I estimate there is LOW risk for PULMONARY EMBOLI, RESPIRATORY FAILURE, SEPSIS OR MENINGITIS, thus I consider the discharge disposition reasonable. I have reevaluated this patient multiple times and no significant life threatening changes are noted. The patient and I have discussed the diagnosis and risks, and we agree with discharging home with close follow-up. We also discussed returning to the Emergency Department immediately if new or worsening symptoms occur. We have discussed the symptoms which are most concerning (e.g., changing or worsening pain, trouble swallowing or breathing, neck stiffness, fever) that necessitate immediate return. - Vital Signs Vital signs: Temp Pulse Resp BP Pulse Ox 98.5 F 105 H 16 129/95 H 100 12/28/17 10:43 12/28/17 10:43 12/28/17 10:43 12/28/17 10:43 12/28/17 10:43 - Diagnostic Test Radiology reviewed: Image reviewed - Doppler left lower extremity ultrasound there is no acute abnormality, Reports reviewed Discharge - Discharge Clinical Impression: Left leg pain Condition: Stable Disposition: HOME, SELF-CARE Instructions: Leg Pain Nonspecific ([facility]) Additional Instructions: Follow up with your physician tomorrow for further care or return to the ED IMMEDIATELY if symptoms worsen or new concerns occur. If you cannot afford to follow up with your primary care physician a list of low cost clinics have been provided at the end of your discharge papers as well.
[2017-12-28 12:44] VITALS: BP 129/84
--- NOTE | 2017-12-28 13:21 | RADIOLOGY REPORT (SQ) ---
EXAM DESCRIPTION: VENOUS UNILATERAL LOWER COMPLETED DATE/TIME: 12/28/2017 12:50 pm REASON FOR STUDY: left lower extremity edema COMPARISON: None. TECHNIQUE: Dynamic and static garduno scale and color images acquired of the left leg venous system. Se lected spectral images acquired with additional compression and augmentation maneuvers. The contralat eral common femoral vein and saphenofemoral junction were also imaged. Images stored on PACS. LIMITATIONS: None. FINDINGS: COMMON FEMORAL: Normal phasicity, compression and augmentation. No visualized echogenic ma terial on garduno scale. No defects on color images. FEMORAL: Normal compression and augmentation. No visualized echogenic material on garduno scale. No defe cts on color images. POPLITEAL: Normal compression, augmentation. No visualized echogenic material on garduno scale. No defec ts on color images. CALF VESSELS: Normal compression, augmentation. No visualized echogenic material on garduno scale. No de fects on color images. GSV and SSV: Normal compression, augmentation. No visualized echogenic material on garduno scale. No def ects on color images. ANY DEEP VENOUS INSUFFICIENCY: Not evaluated. ANY EVIDENCE OF POPLITEAL CYST: No. OTHER: No other significant finding. CONTRALATERAL COMMON FEMORAL VEIN AND SAPHENOFEMORAL JUNCTION: Normal phasicity, compression and augmentation. No visualized echogenic material on garduno scale. No de fects on color images. IMPRESSION: NO EVIDENCE DVT OR SVT IN THE LEFT LEG. TECHNICAL DOCUMENTATION: JOB ID: [id number] [employer]- All Rights Reserved Reading location - IP/workstation name: [email or web address]
== END 2017-12-28 12:44 | disposition home or self-care (01) ==
LOC: ER 10:39
DX: M79.605 Pain in left leg (principal); M79.89 Other specified soft tissue disorders; F17.210 Nicotine dependence, cigarettes, uncomplicated
CPT/HCPCS: 93971; 99284

== ENCOUNTER 2018-05-12 19:06 | Emergency (ER) | payer MEDICAID ==
[2018-05-12 22:27] LABS: ABSOLUTE EOSINOPHILS # (AUTO) 0.1 10^3/uL (0.0-0.6); ABSOLUTE LYMPHOCYTES (AUTO) 2.2 10^3/uL (0.5-4.7); ABSOLUTE MONOCYTES (AUTO) 0.5 10^3/uL (0.1-1.4); ABSOLUTE NEUT (AUTO) 7.9 10^3/uL (1.7-8.2); BASOPHILS % (AUTO) 0.3 % (0-2); EOSINOPHILS % (AUTO) 0.5 % (0-6); HEMATOCRIT 40.7 % (36.0-47.0); HEMOGLOBIN 14.3 g/dL (12.0-15.5); LYMPHOCYTES % (AUTO) 20.3 % (13-45); MEAN CORPUSCULAR HEMOGLOBIN 30.6 pg (27.0-33.4); MEAN CORPUSCULAR HGB CONC 35.2 g/dL (32.0-36.0); MEAN CORPUSCULAR VOLUME 87 fl (80-97); MONOCYTES % (AUTO) 4.3 % (3-13); PLATELET COUNT 250 10^3/uL (150-450); RED BLOOD COUNT 4.69 10^6/uL (3.72-5.28); RED CELL DISTRIBUTION WIDTH 12.5 % (11.5-14.0); SEGMENTED NEUTROPHILS % (AUTO) 74.6 % (42-78); TOTAL CELLS COUNTED % (AUTO) 100 %; WHITE BLOOD COUNT 10.6 10^3/uL (4.0-10.5)
[2018-05-12 22:53] LABS: ALANINE AMINOTRANSFERASE 26 U/L (9-52); ALBUMIN 5.4 g/dL (3.5-5.0); ALKALINE PHOSPHATASE 127 U/L (38-126); ANION GAP 17 (5-19); ASPARTATE AMINO TRANSFERASE 28 U/L (14-36); BILIRUBIN,DIRECT 0.5 mg/dL (0.0-0.4); BLOOD UREA NITROGEN 5 mg/dL (7-20); CARBON DIOXIDE 24 mmol/L (22-30); CHLORIDE 100 mmol/L (98-107); GLUCOSE 98 mg/dL (75-110); LIPASE 52.3 U/L (23-300); POTASSIUM 3.8 mmol/L (3.6-5.0); SODIUM 140.8 mmol/L (137-145); TOTAL PROTEIN 9.4 g/dL (6.3-8.2)
--- NOTE | 2018-05-12 23:12 | RADIOLOGY REPORT (SQ) ---
Right upper quadrant ultrasound HISTORY: Right upper quadrant pain. FINDINGS: Liver is unremarkable. Pancreas is unremarkable. Aorta and IVC are within normal limits. Hepatopedal flow in portal vein. Gallbladder is unremarkable with no evidence for calculus, wall thickening or pericholecystic fluid. No significant biliary dilatation with CBD measuring 3 mm. IMPRESSION: No evidence for cholelithiasis or cholecystitis.
[2018-05-12] MEDS ORDERED: ACETAMINOPHEN 325 MG TABLET PO ONE (23:48)
[2018-05-12] MEDS ORDERED: KETOROLAC TROMETHAMINE INJ/PF 30 MG/1 ML SDV IV ONE (23:48)
[2018-05-12] MEDS ORDERED: LIDOCAINE 5% (700 MG) TRANSDERMAL ADH..PATCH TP ONE (23:48)
--- NOTE | 2018-05-12 23:57 | ER Document Report ---
ED General - General Chief Complaint: Abdominal Pain Stated Complaint: ABDOMINAL PAIN Time Seen by Provider: 05/12/18 21:52 Notes: Patient is a 32-year old with a past medical history of recurrently abnormal LFTs of uncertain etiology, unspecified autoimmune disorder, who presents with right upper abdominal discomfort and right intercostal discomfort on the lower aspect of her ribs for the past 12 hours. She describes the pain as an aching, throbbing, constant pain. She has not trying to improve her pain. The patient has had a persistent cough over the last 1-2 weeks and notes that she has worsening pain when she coughs but denies any pleuritic pain or distinct chest pain. No shortness of breath. No fever or constitutional symptoms. She has not seen her general doctor regarding today's concerns. TRAVEL OUTSIDE OF THE [place] IN LAST 30 DAYS: No - Related Data Allergies/Adverse Reactions: No Known Allergies Allergy (Verified 11/23/17 11:55) Past Medical History - General Information source: Patient - Social History Smoking Status: Current Every Day Smoker Frequency of alcohol use: None Drug Abuse: None Lives with: Spouse/Significant other Family History: Reviewed & Not Pertinent Patient has suicidal ideation: No Patient has homicidal ideation: No Renal/ Medical History: Denies: Hx Peritoneal Dialysis Past Surgical History: Reports: Hx Adenoidectomy, Hx Section, Hx Tonsillectomy Review of Systems - Review of Systems Notes: Constitutional: Negative for fever. HENT: Negative for sore throat. Eyes: Negative for visual changes. Cardiovascular: Negative for chest pain. Respiratory: Negative for shortness of breath. Gastrointestinal: Positive for upper abdominal pain and nausea Genitourinary: Negative for dysuria. Musculoskeletal: Negative for back pain. Skin: Negative for rash. Neurological: Negative for headaches, weakness or numbness. 10 point ROS negative except as marked above and in HPI. Physical Exam - Vital signs Vitals: Temp Pulse Resp BP Pulse Ox 99.0 F 93 16 128/82 H 100 05/12/18 19:12 05/12/18 19:12 05/12/18 19:12 05/12/18 19:12 05/12/18 19:12 Interpretation: Normal Notes: PHYSICAL EXAMINATION: GENERAL: Well-appearing, well-nourished and in no acute distress. HEAD: Atraumatic, normocephalic. EYES: Pupils equal round and reactive to light, extraocular movements intact, sclera anicteric, conjunctiva are normal. ENT: nares patent, oropharynx clear without exudates. Moist mucous membranes. NECK: Normal range of motion, supple without lymphadenopathy LUNGS: Breath sounds clear to auscultation bilaterally and equal. No wheezes rales or rhonchi. HEART: Regular rate and rhythm without murmurs Chest wall: Pain on palpation of the right lower intercostal spaces ABDOMEN: Soft, minimal right upper quadrant abdominal pain otherwise no localized abdominal tenderness, normoactive bowel sounds. No guarding, no rebound. No masses appreciated. EXTREMITIES: Normal range of motion, no pitting or edema. No cyanosis. NEUROLOGICAL: No focal neurological deficits. Moves all extremities spontaneously and on command. PSYCH: Normal mood, normal affect. SKIN: Warm, Dry, normal turgor, no rashes or lesions noted. Course - Re-evaluation Re-evalutation: 05/12/18 23:59 Patient presents with right upper quadrant abdominal pain and pain between her right lower ribs that started earlier today. She notes that she has been coughing without sputum production for the past several days and is unsure of whether or not her pain is related to previously diagnosed issues of possible autoimmune hepatitis versus pain between her ribs from coughing. Lung examination is completely clear, symptoms and clinical history not consistent with a pneumonia. No hypoxia or tachypnea. No indication for chest x-ray. Repeat labs do not show any recurrence of her transaminitis seen on previous labs, normal right upper quadrant ultrasound. Pain improved after receiving Toradol and topical lidocaine. Clinical history is not consistent with an acute pulmonary embolus. She is PERC criteria negative. At this time will discharge with return precautions and follow-up recommendations. Verbal discharge instructions given a the bedside and opportunity for questions given. Medication warnings reviewed. Patient is in agreement with this plan and has verbalized understanding of return precautions and the need for primary care follow-up in the next 24-72 hours. - Vital Signs Vital signs: Temp Pulse Resp BP Pulse Ox 98.6 F 70 16 109/66 98 05/13/18 00:13 05/13/18 00:13 05/13/18 00:13 05/13/18 00:13 05/13/18 00:13 - Laboratory Result Diagrams: 05/12/18 22:20 05/12/18 22:20 Laboratory results interpreted by me: 05/12/18 05/12/18 22:20 22:20 WBC 10.6 H BUN 5 L Direct Bilirubin 0.5 H Alkaline Phosphatase 127 H Total Protein 9.4 H Albumin 5.4 H - Diagnostic Test Radiology reviewed: Reports reviewed Discharge - Discharge Clinical Impression: Costochondritis, acute, Right upper quadrant abdominal pain Condition: Good Disposition: HOME, SELF-CARE Additional Instructions: Your labs and right upper quadrant ultrasound are normal today. Your pain may be related to irritation of the muscles between the ribs. Take ibuprofen 600 mg every 6 hours and apply topical lidocaine cream to the area as needed for pain. Please follow-up with your primary care doctor within the next 24-40 hours. Return immediately for worsening of her pain, difficult to breathing, begin vomiting, fever greater than 100.4 F, or any other symptoms that are worrisome to you. Referrals: SCOTT JUAN MD [Primary Care Provider] - Follow up as needed
[2018-05-13 00:14] VITALS: BP 109/66
== END 2018-05-13 00:14 | disposition home or self-care (01) ==
LOC: ER 19:06
DX: M94.0 Chondrocostal junction syndrome [Tietze] (principal); R10.11 Right upper quadrant pain; F17.200 Nicotine dependence, unspecified, uncomplicated
CPT/HCPCS: 99284; 96374; 36415; 83690; 84703; 85025; 80053; 76705; J3490 ×2; J1885